=== PATIENT | male | born 1990 | race African-American/Black ===

== ENCOUNTER 2019-04-07 08:46 | Inpatient (IN) | payer SELFPAY ==
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
[2019-04-07] MEDS ORDERED: Iopamidol 755 MG/ML 500 ML Multipack Bottle IVPUSH STA (09:25)
[2019-04-07 09:34] LABS: BLOOD UREA NITROGEN,BUN 8 mg/dL (7.0-18.0); CARBON DIOXIDE,CO2 16.8 mmol/L (21.0-32.0); CHLORIDE,CL 90 mmol/L (98-107); GLUCOSE RANDOM 235 mg/dL (74-106); POTASSIUM,K 3.1 mmol/L (3.5-5.1); SODIUM,NA 134 mmol/L (136-148)
--- NOTE | 2019-04-07 09:34 | CT ---
Head CT Technique: Multiple axial sections through the brain were obtained. Intravenous contrast was not utilized. Comparison: No prior intracranial imaging is available. Findings: Ventricles along with basal cisterns and sulci over the convexities are within normal limits for the patient's age. No abnormal parenchymal densities are seen. No evidence of intracranial hemorrhage. No midline shift or mass-effect is seen. Bone window settings were reviewed. Visualized mastoid sinuses and paranasal sinuses show nothing acute. No acute calvarial abnormality is appreciated. Fractures are noted within the right lateral orbital wall and right zygomatic arch. Borders of these fracture lines appear smooth and it is likely old. No additional abnormality is seen. Impression: 1. Fractures within the lateral right orbital wall and right zygomatic arch. As mentioned above, margins of these fracture lines appear smooth and it is most likely old. 2. No acute intracranial abnormality is seen. Diagnostic code #2 This report was dictated in [place] Standard Time
--- NOTE | 2019-04-07 09:37 | CT ---
CT chest Technique: Multiple axial sections were obtained from above the lung apices inferiorly through the lung bases. Intravenous contrast was utilized. Limitations: Mild motion artifact. Comparison: No prior chest imaging is available. Findings: Thoracic aorta shows normal opacification. No aneurysm is identified. No mediastinal hematoma or mediastinal adenopathy is identified. No pericardial fluid is seen. Lungs show no acute parenchymal change. No pleural effusions are seen. No pneumothorax is identified. Bone window settings were reviewed which are less than optimal to evaluate for subtle rib fractures because of the motion. No gross displaced rib fracture is seen. Vertebral body heights are maintained within the thoracic spine. Evaluation of the sternum is impossible because of motion. Impression: 1. Motion artifact making good evaluation of the ribs and sternum impossible. 2. Within the limitation imposed by motion, nothing acute is otherwise seen on CT study of the chest. Diagnostic code #2 This report was dictated in [place] Standard Time
--- NOTE | 2019-04-07 09:46 | CT ---
CT cervical spine Technique: Multiple axial sections were obtained from above C1 inferiorly to the bottom of T3. Reconstructed coronal and sagittal images were reviewed. Comparison: No prior cervical spine imaging is available. Findings: Vertebral body heights and disc spaces are maintained. No bony central or bony neural foraminal stenosis is seen. No fracture is identified. No abnormal subluxation is appreciated. Impression: 1. Nothing acute is appreciated on CT study of the cervical spine. Diagnostic code #1 This report was dictated in [place] Standard Time
--- NOTE | 2019-04-07 09:46 | CT ---
CT abdomen and pelvis Technique: Multiple axial sections were obtained from above the dome of the diaphragm inferiorly through the pubic symphysis. Intravenous contrast was utilized. No oral contrast has been given. Comparison: No prior abdominal imaging is available. Findings: Mild motion artifact is seen. Liver shows fatty infiltration. No focal abnormality is appreciated within the liver. Spleen appears within normal limits. Adrenal glands show no nodule. Kidneys show symmetric contrast enhancement without hydronephrosis or mass. Pancreas is within normal limits. Gallbladder contains no calcified gallstones. Aorta shows no aneurysm. No retroperitoneal adenopathy or mesenteric abnormalities are seen. No pelvic mass or adenopathy is seen. Bladder wall thickening is seen most likely due to lack of distention. No free fluid or inflammatory change is seen within the abdomen or within the pelvis. Appendix is not definitely visualized with certainty. Bone window settings were reviewed which shows the vertebral body heights to appear maintained within the lumbar spine. No discrete lumbar spine fracture or pelvic fracture is seen. Impression: 1. Slight motion artifact. 2. Fatty infiltration within the liver. 3. Within mild limitation imposed by motion, nothing acute is appreciated on CT study of the abdomen and pelvis. Diagnostic code #2 This report was dictated in [place] Standard Time
[2019-04-07] MEDS ORDERED: Ondansetron 4 MG Tab.DIS PO PRN (13:43)
[2019-04-07] MEDS ORDERED: Docusate Sodium 100 MG Cap PO PRN (13:43)
[2019-04-07] MEDS ORDERED: Ketorolac 15 MG/ML SDV IVPUSH PRN (13:43)
[2019-04-07] MEDS ORDERED: Acetaminophen 325 MG Tab PO PRN (13:43)
[2019-04-07] MEDS ORDERED: Sodium Chloride 0.9% 2.5 ML Syringe FLUSH PRN (13:43)
[2019-04-07] MEDS ORDERED: Sodium Chloride 0.9% 10 ML SDV IV PRN (13:43)
[2019-04-07] MEDS ORDERED: Ondansetron 4 MG/2 ML SDV IVPUSH PRN (13:43)
[2019-04-07] MEDS ORDERED: Sodium Chloride 0.9% 10 ML Syringe FLUSH PRN (13:43)
[2019-04-07] MEDS ORDERED: Polyethylene Glycol 3350 Powder 17 GM Packet PO PRN (13:43)
[2019-04-07] MEDS ORDERED: MVI, Adult with Vitamin K 10 ML, Thiamine 100 MG, Folic Acid 1 MG in Sodium Chloride 0.... IV ONE ×4 (13:47)
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
[2019-04-07] MEDS ORDERED: Potassium Chloride 20 MEQ Tab.ER PO SCH (14:00)
[2019-04-07] MEDS ORDERED: Lactated Ringers 1,000 ML IV SCH (14:15)
[2019-04-07] MEDS: Pantoprazole 40 MG in Sodium Chloride 0.9% 10 ML IV SCH (14:16)
[2019-04-07] MEDS: LORazepam 2 MG/ML SDV IM PRN ×2 (14:24→14:44)
[2019-04-07 14:35] LABS: HEMOGLOBIN A1C 5.4 % (4.5-6.2)
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
[2019-04-07] MEDS ORDERED: Sucralfate 1 GM Tab PO SCH (17:00)
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
[2019-04-08 06:03] LABS: BLOOD UREA NITROGEN,BUN 6 mg/dL (7.0-18.0); CARBON DIOXIDE,CO2 25.7 mmol/L (21.0-32.0); CHLORIDE,CL 98 mmol/L (98-107); GLUCOSE RANDOM 83 mg/dL (74-106); POTASSIUM,K 3.2 mmol/L (3.5-5.1); SODIUM,NA 137 mmol/L (136-148)
[2019-04-08] MEDS ORDERED: Potassium Chloride Riders 40 MEQ in Premix Bag 1 BAG IV ONE (06:24)
--- NOTE | 2019-04-08 06:33 | PN ---
THC Physician - Brief Progress [id number]/29/2020 06:31[facility] sandra Delia, NICHOLE - CELSA [facility] - LAVELL SPEARDate of Service 04/08/2019 06:31HPI/ Events of Note K low. Cr normalized.Kcl 40 meq IV slowly over 4 hrs.Interventions Minor-Electrolyte a bnormality - evaluation and management 06:3 2
[2019-04-08] MEDS ORDERED: LORazepam 2 MG/ML SDV IV PRN (08:10)
[2019-04-08] MEDS ORDERED: Potassium Chloride 20 MEQ Tab.ER PO ONE (08:11)
[2019-04-08] MEDS ORDERED: Folic Acid/Vitamin B Complex With C Cap PO SCH (09:00)
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
[2019-04-08] MEDS: Pantoprazole 40 MG in Sodium Chloride 0.9% 10 ML IV SCH (13:15)
== END 2019-04-08 15:15 | disposition home or self-care (01) | DRG 101 ==
LOC: MW.ED 08:46 → MW.MS 11:46 → OBSVTOIN 14:47 → MW.ICU 15:37
PROVIDERS: ADMIT Internal Medicine; ATTEND Internal Medicine
DX: G40.409 Other generalized epilepsy and epileptic syndromes, not intractable, without status epilepticus (principal); N17.9 Acute kidney failure, unspecified; E87.6 Hypokalemia; S06.0X0A Concussion without loss of consciousness, initial encounter; R40.2422 Glasgow coma scale score 9-12, at arrival to emergency department; F10.10 Alcohol abuse, uncomplicated; R79.89 Other specified abnormal findings of blood chemistry; V49.9XXA Car occupant (driver) (passenger) injured in unspecified traffic accident, initial encounter
CPT/HCPCS: 36415; 70450; 70450-26; 71260; 71260-26; 72125; 72125-26; 74177; 74177-26; 80053; 80305-QW; 80307; 81001; 82962; 83036; 83735; 84443; 85025; 85610; 93005; 99284; 99285-25; A9270-GY; C9113; J1953; J2060; J3411; J3480; J7030; J7050; J7060; J7120; Q9967